=== PATIENT | female | born 1980 ===

== ENCOUNTER 2017-03-28 08:58 | Emergency (ER) | payer MEDICAID ==
[2017-03-28 09:05] VITALS: BP 102/64; PULSE 80; RESP 18; TEMP 97.6; O2SAT 100
[2017-03-28] MEDS ORDERED: Sodium Chloride 0.9% 1,000 ML IV STA (10:02)
--- NOTE | 2017-03-28 10:07 | ED PDOC ---
HPI: Headache Time Seen by Provider: 03/28/17 09:45 Chief Complaint (Nursing): Headache Chief Complaint (Provider): Headache History Per: Patient History/Exam Limitations: no limitations Onset/Duration Of Symptoms: Days Current Symptoms Are (Timing): Still Present Severity: Mild Quality: "Pain" Preceeding Symptoms: None Associated Symptoms: Photophobia Additional Complaint(s): Patient is a 36 year old female with a history of migraines triggered by her menstrual cycle, presents to ED for a headache for 4 days. Patient states pain is right ocular with radiation to posterior head similar to previous migraines. Notes she is currently on her menses. Denies thunderclap pain or worse pain in her life. Patient states pain is associated with photophobia and unrelieved with Excedrin or Motrin. Past Medical History Reviewed: Historical Data, Nursing Documentation, Vital Signs Vital Signs: Last Vital Signs Temp 97.6 F 03/28/17 09:04 Pulse 80 03/28/17 09:04 Resp 18 03/28/17 09:04 BP 102/64 03/28/17 09:04 Pulse Ox 100 03/28/17 09:04 - Medical History PMH: Anemia - Surgical History Surgical History: No Surg Hx - Family History Family History: States: No Known Family Hx - Living Arrangements Living Arrangements: With Family - Home Medications Home Medications: Ambulatory Orders Medication Instructions Recorded Ketorolac Tromethamine [Toradol] 10 mg PO BID #30 tab 03/28/17 - Allergies Allergies/Adverse Reactions: Allergies Allergy/AdvReac Type Severity Reaction Status Date / Time Sulfa (Sulfonamide Allergy ITCHING Verified 03/28/17 09:16 Antibiotics) Review of Systems ROS Statement: Except As Marked, All Systems Reviewed And Found Negative Constitutional: Negative for: Weakness Eyes: Negative for: Vision Change ENT: Negative for: Ear Pain Gastrointestinal: Negative for: Nausea, Vomiting Musculoskeletal: Negative for: Neck Pain Neurological: Positive for: Headache. Negative for: Weakness, Numbness, Dizziness Physical Exam - Reviewed Nursing Documentation Reviewed: Yes Vital Signs Reviewed: Yes - Physical Exam Appears: Positive for: Non-toxic, No Acute Distress Head Exam: Positive for: ATRAUMATIC, NORMAL INSPECTION Skin: Positive for: Normal Color, Warm Eye Exam: Positive for: Normal appearance, PERRL Neck: Positive for: Normal, Painless ROM, Supple Cardiovascular/Chest: Positive for: Regular Rate, Rhythm. Negative for: Murmur Respiratory: Positive for: Normal Breath Sounds. Negative for: Respiratory Distress Extremity: Positive for: Normal ROM Neurologic/Psych: Positive for: Alert, pairer inspector II-XII (grossly intact ), Oriented, Mood/Affect (nl), Cerebellar Tests (nl), Gait. Negative for: Motor/Sensory Deficits, Aphasia, Facial Droop - Laboratory Results Result Diagrams: 03/28/17 10:15 - ECG O2 Sat by Pulse Oximetry: 100 (RA) Pulse Ox Interpretation: Normal Medical Decision Making Medical Decision Making: Time: 954 Initial impression: Migraine headache Initial plan: -- CBC -- NSF, Reglan and Toradol [id number]: Pt. feels much improved, states she's getting her appetite back. Instructed about mild anemia, told to f/u w/ her PMD Dr. Conde at [facility]. Scribe Attestation: Documented by No Hercules acting as a scribe for Cristobal Kim MD MD Scribe Attestation: All medical record entries made by the Scribe were at my direction and personally dictated by me. I have reviewed the chart and agree that the record accurately reflects my personal performance of the history, physical exam, medical decision making, and the department course for this patient. I have also personally directed, reviewed, and agree with the discharge instructions and disposition. Disposition - Clinical Impression Clinical Impression: Migraine - Disposition Referrals: [facility] [Provider Group] Disposition Time: 12:00 Condition: STABLE Prescriptions: Ketorolac Tromethamine [Toradol] 10 mg PO BID #30 tab Instructions: Migraine Headache (ED)
[2017-03-28 10:25] LABS: HEMATOCRIT 33.5 % (34.0-47.0); MEAN CORPUSCULAR HEMOGLOBIN 24.3 pg (27.0-31.0); RED CELL DISTRIBUTION WIDTH 16.4 % (11.5-14.5); WHITE BLOOD COUNT 3.7 K/uL (4.8-10.8)
== END 2017-03-28 12:39 | disposition home or self-care (01) ==
LOC: H.ER 08:58
DX: G43.909 Migraine, unspecified, not intractable, without status migrainosus (principal); D64.9 Anemia, unspecified